=== PATIENT | female | born 1965 | race Caucasian/White ===

== ENCOUNTER 2024-06-08 12:37 | Emergency (ER) | payer OTHER | END 2024-06-08 13:40 | disposition home or self-care (01) | LOC: MADERS 12:37 | DX: M79.671 Pain in right foot (principal); I10 Essential (primary) hypertension; B37.1 Pulmonary candidiasis; F17.290 Nicotine dependence, other tobacco product, uncomplicated; X58.XXXA Exposure to other specified factors, initial encounter; Y93.01 Activity, walking, marching and hiking | CPT/HCPCS: 99283 ==